=== PATIENT | male | born 1945 ===

== ENCOUNTER 2021-10-11 15:24 | Emergency (ER) | payer MEDICARE, OTHER | END 2021-10-11 18:30 | disposition home or self-care (01) | LOC: JD.ED 15:24 | DX: S09.90XA Unspecified injury of head, initial encounter (principal); I10 Essential (primary) hypertension; W01.10XA Fall on same level from slipping, tripping and stumbling with subsequent striking against unspecified object, initial encounter | CPT/HCPCS: 70450; 70450-26; 93005; 99284-25 ==